=== PATIENT | male | born 1965 | race Caucasian/White ===

== ENCOUNTER 2017-01-17 12:38 | Emergency (ER) | payer BC | END 2017-01-17 16:52 | disposition left against medical advice (07) | LOC: ER1 12:38 | DX: Z53.21 Procedure and treatment not carried out due to patient leaving prior to being seen by health care provider (principal) ==

== ENCOUNTER 2017-03-01 16:55 | Emergency (ER) | payer BC ==
[2017-03-01 18:11] LABS: HEMOGLOBIN 15.7 gm/dl (14.0-17.5); RED BLOOD COUNT 5.48 M/UL (4.20-5.50); WHITE BLOOD COUNT 11.3 K/UL (4.5-11.0)
[2017-03-01 18:35] LABS: BUN/CREATININE RATIO 14 (0-10)
== END 2017-03-01 22:05 | disposition home or self-care (01) ==
LOC: ER1 16:55
PROVIDERS: Emergency Medicine
DX: R10.9 Unspecified abdominal pain (principal); I10 Essential (primary) hypertension
CPT/HCPCS: 36415; 71010; 80053; 81001; 82550; 82553; 83605; 83690; 83874; 84484; 85025; 85610; 85730; 87086; 93005; 96374; 96375; 99284; J2270; J2405; J7050; Q9962

== ENCOUNTER → 2017-04-04 | Outpatient (CLI) | payer BC | LOC: HEART 5 13:44 | DX: J44.9 Chronic obstructive pulmonary disease, unspecified (principal); Z87.891 Personal history of nicotine dependence | CPT/HCPCS: 94060; 94729 ==